=== PATIENT | female | born 1935 | race Caucasian/White ===

== ENCOUNTER 2020-11-03 20:44 | Emergency (ER) | payer OTHER ==
--- OUTSIDE RECORDS SUMMARY | 2020-11-03 20:46 | XMS REPORT | Continuity of Care Document ---
:[birth year][address] [facility] t Address [address] [place] [address] Care Team Providers Name Role Phone ISREAL HERNANDEZ Attending Clinician Unavailable ISREAL HERNANDEZ Admitting Clinician Unavailable Problems Condition Condition Condition Status Onset Resolution Last Treating Co mments Source Name Details Category Date Date Treatment Clinician Date Urge Urge Disease Active 2017-[address] [facility] incontinen incontinen -19 [facility] - ce ce 00:00: Medical 00 Center Allergies, Adverse Reactions, Alerts Allergy Allergy Status Severity Reaction(s) Onset Inactive Treating Comm ents Source Name Type Date Date Clinician Penicill Propensi Active Rash 2017-[address] [facility] [address] [facility] - adverse [facility]: [facility] reaction 00 Center s Adhesive Propensi Active Rash 2017-[address] [facility] Tape ty to 2-18 [facility] - adverse 00:00: Medical reaction 00 [place] [facility] [facility] Aspirin, Propensi Active Nausea Only 2017-[address] Buffered ty to 2-18 [facility] - adverse 00:00: Medical reaction 00 Center s Social History Social Habit Start Date Stop Date Quantity Comments Source History [facility] - Alcohol Std Drinks Medica l Center History [facility] - Alcohol Binge Medical [place] Sex Assigned At [facility] - [facility] Center Tobacco use and 2018-07-20 2018-07-[address] [facility] [address] [facility] - exposure 00:00:00 00:00:00 Medical Center Alcohol intake 2018-07-20 2018-07-20 Current [facility]3]k es - 00:00:00 00:00:00 non-drinker of Medical Ce nter alcohol (finding) History SDOH 2018-07-18 2018-07-[address] [facility] - Alcohol Frequency 00:00:00 00:00:00 Medical Center Smoking Status Start Date Stop Date Source Never smoker [facility] - M edical [facility] Medications Ordered Filled Start Stop Current Ordering Indication Dosage Frequency Signature Comments Components Source Medication Medication Date Date Medication? Clinician (SIG) Name Name cholecalcif 2017-08 Yes Take by [facility], 2-19 [facility]. [facility] - vitamin D3, 16:12: Medica l (VITAMIN D3 39 Center ORAL) omega-3 2017-08 Yes 2g Q.5D Take [address] [facility] fatty 2-19 by mouth 2 [facility] - acids-fish 16:12: (two) Medica l oil 39 times Center 340-1,000 daily. mg Cap per capsule aspirin 81 2017-08 Yes 81mg QD Take [address] MG EC 2-19 by mouth [facility] - tablet 16:12: daily. Medical 39 Center Procedures This patient has no known procedures. Plan of Care Planned Activity Planned Date Details Comments Source Future Scheduled 2020-04-01 INFLUENZA VACCINE (#1) [facility] - Test 00:00:00 [code = INFLUENZA Medical Ce nter VACCINE (#1)] Future Scheduled 2018-08-[address] [facility] - Test 00:00:00 WELLNESS (YEAR 2 or Medical Center FIRST YEAR if no IPPE) [code = MEDICARE ANNUAL WELLNESS (YEAR 2 or FIRST YEAR if no IPPE)] Future Scheduled 2002 PNEUMOCOCCAL 65+ YRS [facility] - Test 00:00:00 (1 of 1 - Medical Center [id number] PCV13) [code = PNEUMOCOCCAL 65+ YRS (1 of 1 - [id number] PCV13)] Results Test Description Test Time Test Comments Results Result Sour e Comments FL, 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 NO INCREMENTS needed INTERPRETATION REQUESTED. OSE 2018-07-19 12:43:00 Test Item Value Reference Range Interpretation Comme nts GLUCOSE RANDOM (BEAKER) (test code = 652) 105 mg/dL 70-110 BUN AND [id number] 12:43:00 Test Item Value Reference Range Interpretation Comments BLOOD UREA NITROGEN 10 mg/dL 10-26 (JOSE DAVID) (test code = 354) CREATININE (PRIYAAKER) 0.66 mg/dL 0.50-1.20 (test code = 358) EGFR (JOSE DAVID) (test 86 mL/min/1.73 ESTIMA MANISH GFR IS code = 1092) sq m NOT ACCURATE CREATININE CLEARANCE IN PREDICTING GLOMERULAR FILTRATION RATE . ESTIMATED GFR I S NOT APPLICABLE FOR DIALYSIS MINGAG TS. [id number] 12:26:00 Test Item Value Reference Range Interpretation Comments HEMOGLOBIN (JOSE DAVID) (test code = 13.7 GM/DL 12.0-15.5 410)
--- NOTE | 2020-11-04 01:05 | EDPHYS ---
Physician Documentation [facility] Name: Barbara Garibay Age: 85 yrs Sex: Female : 1935 Arrival Date: 11/03/2020 Time: 20:46 Bed 25 Private MD: ED Physician Mateo Regalado HPI: 11/04 00:48 This 85 yrs old Female presents to ER via EMS with complaints of Back Pain. pkl 00:48 Details of fall: The patient fell from an upright position, while standing. Onset: The pkl symptoms/episode began/occurred today. Associated injuries: The patient sustained neck injury, upper back injury, injury to the low back. Historical: - Allergies: 11/03 21:10 Aspirin; 21:10 PENICILLINS; fu - PMHx: 21:10 High Cholesterol; fu 21:37 stroke- left side weakness; Hypertension; fu - PSHx: 21:10 Hysterectomy; eye surgery; fu - Immunization history:: Adult Immunizations not up to date. - Social history:: Patient/guardian denies using tobacco products, Smoking status: Patient denies any tobacco usage or history of. ROS: 11/04 00:48 Eyes: Negative for injury, pain, redness, and discharge, ENT: Negative for injury, pkl pain, and discharge. Neck: Positive for pain with movement. Cardiovascular: Negative for chest pain. Respiratory: Negative for cough, shortness of breath. Abdomen/GI: Negative for abdominal pain, nausea, vomiting, and diarrhea. Back: Positive for pain with movement, of the lower back. : Negative for urinary symptoms. MS/extremity: Negative for acute changes. Skin: Negative for rash. Neuro: Negative for altered mental status, loss of consciousness. Exam: 00:48 Head/Face: Normocephalic, atraumatic. Eyes: Pupils equal round and reactive to light, pkl extra-ocular motions intact. Lids and lashes normal. Conjunctiva and sclera are non-icteric and not injected. Cornea within normal limits. Periorbital areas with no swelling, redness, or edema. ENT: Nares patent. No nasal discharge, no septal abnormalities noted. Tympanic membranes are normal and external auditory canals are clear. Oropharynx with no redness, swelling, or masses, exudates, or evidence of obstruction, uvula midline. Mucous membranes moist. 00:48 Neck: ROM/movement: pain, that is mild, with any movement. 00:48 Chest/axilla: Exam negative for acute changes. 00:48 Cardiovascular: Exam negative for acute changes. 00:48 Respiratory: the patient does not display signs of respiratory distress, Respirations: normal, Breath sounds: are clear throughout. 00:48 Abdomen/GI: Bowel sounds: normal, Palpation: abdomen is soft and non-tender, in all quadrants. 00:48 Back: pain, that is moderate, of the lower back. 00:48 : Exam negative for acute changes. 00:48 Musculoskeletal/extremity: Extremities: grossly normal except: noted in the left knee: 00:48 Skin: Exam negative for rash. 00:48 Neuro: Orientation: appropriate for stated age, Mentation: is normal, Cranial nerves: grossly normal, Motor: is normal. Vital Signs: 11/03 20:49 BP 172 / 79; Pulse 82; Resp 18; Temp 99.5(O); Pulse Ox 97% on R/A; Pain 0/10; fu 21:00 BP 172 / 79; Pulse 75; Resp 18; Temp 98.4(O); Pulse Ox 97% on R/A; Pain 0/10; fu 23:47 BP 152 / 97; Pulse 70; Resp 19; Pulse Ox 97% on R/A; fu MDM: 22:38 Patient medically screened. [facility] 11/04 01:01 Data reviewed: vital signs, nurses notes, radiologic studies, CT scan. ED course: pkl Discussed CT Scans with patient and family. Advised to follow up with pain management in a few days. Instructions understood. 11/03 22:49 Order name: CT Traumagram (Head C Spine CAP wo con) [facility] Administered Medications: 01:13 Drug: Tylenol 650 mg Route: PO; fu Disposition: 11/04/20 01:05 Discharged to Home. Impression: Cervical strain. Contusion back. S/P Fall. - Condition is Stable. - Medication Reconciliation Form, Thank You Letter, Antibiotic Education, Prescription Opioid Use form. - Follow up: Private Physician; When: 2 - 3 days; Reason: Re-evaluation by your physician. - Problem is new. - Symptoms are unchanged. Signatures: Dispatcher [employer] EDMS Mateo Regalado MD MD pkChristian Brooks RN RN fu Corrections: (The following items were deleted from the chart) 01:44 01:05 11/04/2020 01:05 Discharged to Home. Impression: Cervical strain. Contusion back. fu S/P Fall. Condition is Stable. Forms are Medication Reconciliation Form, Thank You Letter, Antibiotic Education, Prescription Opioid Use. Follow up: Private Physician; When: 2 - 3 days; Reason: Re-evaluation by your physician. Problem is new. Symptoms are unchanged. pkl
--- NOTE | 2020-11-04 01:05 | ER ---
Nurse's Notes [facility] Name: Barbara Garibay Age: 85 yrs Sex: Female : 1935 Arrival Date: 11/03/2020 Time: 20:46 Bed 25 Private MD: Diagnosis: Cervical strain. Contusion back. S/P Fall Presentation: 11/03 20:49 Chief complaint: EMS states: Patient fell this morning at home in a ceramic floor, fu toned EMS due to severe back pain with movement. Fentanyl 25mcg given IV before moving patient out of the house. Coronavirus screen: Client denies travel out of the [place] in the last 14 days. Ebola Screen: No symptoms or risks identified at this time. Initial Sepsis Screen: Does the patient meet any 2 criteria? No. Patient's initial sepsis screen is negative. Does the patient have a suspected source of infection? No. Patient's initial sepsis screen is negative. Risk Assessment: Do you want to hurt yourself or someone else? Patient reports no desire to harm self or others. Onset of symptoms was November 04, 2019. 20:49 Method Of Arrival: EMS: [facility] fu 20:49 Acuity: OMKAR 3 fu Historical: - Allergies: 21:10 Aspirin; fu 21:10 PENICILLINS; fu - PMHx: 21:10 High Cholesterol; fu 21:37 stroke- left side weakness; Hypertension; fu - PSHx: 21:10 Hysterectomy; eye surgery; fu - Immunization history:: Adult Immunizations not up to date. - Social history:: Patient/guardian denies using tobacco products, Smoking status: Patient denies any tobacco usage or history of. Screenin:15 Abuse screen: Denies threats or abuse. Nutritional screening: No deficits noted. fu Tuberculosis screening: No symptoms or risk factors identified. Fall Risk Fall in past 12 months (25 points). Mental Status- Oriented to own ability (0 pts). Assessment: 21:11 General: Appears uncomfortable, Behavior is calm, cooperative, appropriate for age, fu Denies fever, feeling ill, fatigue, chills. Pain: Complains of pain in lower back Pain does not radiate. Pain currently is 5 out of 10 on a pain scale. Quality of pain is described as sharp, Pain began this morning Aggravated by repositioning, movement. Neuro: Level of Consciousness is awake, alert, obeys commands, Oriented to person, place, time, situation, Automatic Glove Former are equal bilaterally Moves all extremities. Speech is normal, Facial symmetry appears normal, Reports headache in left parietal area. Cardiovascular: Denies chest pain, nausea, vomiting. Respiratory: Respiratory effort is even, unlabored, Respiratory pattern is regular. GI: No signs and/or symptoms were reported involving the gastrointestinal system. : No signs and/or symptoms were reported regarding the genitourinary system. Derm: Reports redness on the left side. 22:25 Reassessment: Patient is alert, oriented x 3, equal unlabored respirations, skin fu warm/dry/pink. bedpan provided. 22:25 Reassessment: bruising noted to lower back. fu 23:49 Reassessment: Patient and/or family updated on plan of care and expected duration. Pain fu level reassessed. family at bedside. 11/04 01:30 Reassessment: patient for discharge. CD of CT given to patient's daughter in law. fu Vital Signs: 05 20:49 BP 172 / 79; Pulse 82; Resp 18; Temp 99.5(O); Pulse Ox 97% on R/A; Pain 0/10; fu 21:00 BP 172 / 79; Pulse 75; Resp 18; Temp 98.4(O); Pulse Ox 97% on R/A; Pain 0/10; fu 23:47 BP 152 / 97; Pulse 70; Resp 19; Pulse Ox 97% on R/A; fu ED Course: 20:46 Patient arrived in ED. es 20:59 Christian Sheppard, RN is Primary Nurse. fu 21:05 Triage completed. fu 21:16 Patient has correct armband on for positive identification. Bed in low position. Call fu light in reach. Side rails up X2. Pulse ox on. NIBP on. 22:38 Mateo Regalado MD is Attending Physician. pkl 23:19 CT Traumagram (Head C Spine CAP wo con) In Process Unspecified. EDMS 04 01:44 No provider procedures requiring assistance completed. fu 01:44 Patient did not have IV access during this emergency room visit. fu Administered Medications: 01:13 Drug: Tylenol 650 mg Route: PO; fu Outcome: 01:05 Discharge ordered by . pkl 01:45 Discharged to home via wheelchair, with family. fu 01:45 Condition: good 01:45 Discharge instructions given to patient, family, Instructed on discharge instructions, follow up and referral plans. Demonstrated understanding of instructions, follow-up care. 01:47 Patient left the ED. fu Signatures: Dispatcher [employer] Mateo Fernandez MD MD pkSada Koenig Felix, RN RN fu Corrections: (The following items were deleted from the chart) 02:03 01:44 Patient left the ED. fu fu
[2020-11-04] MEDS ORDERED: ACETAMINOPHEN 325 MG TABLET ONE (01:25)
[2020-11-04 03:50] VITALS: O2SAT 97
[2020-11-04 03:51] VITALS: TEMP 98.4
[2020-11-04 03:53] VITALS: BP 152/97
--- NOTE | 2020-11-04 12:49 | RAD REPORT ---
EXAM DESCRIPTION: CT - Head C Spine Cap Vikki Con - 11/04/2020 6:36 am CLINICAL HISTORY: Fall on ceramic floor. Severe back pain. TECHNIQUE: Axial, coronal, and sagittal images through the brain were performed in the absence of in travenous contrast. CT of the cervical spine was performed without contrast. Axial, coronal, and sagittal reconstructions were created and sent to PACS. CT of the chest, abdomen, and pelvis was performed without contrast. Axial, coronal, and sagittal rec onstructions were created and sent to PACS. These exams were performed according to our departmental dose-optimization program which includes use of Automated Exposure Control, adjustment of the mA and/or kV according to patient size and/or use o f iterative reconstruction technique. COMPARISON: None. FINDINGS: CT Head: There is diffuse age-appropriate atrophy seen throughout the brain parenchyma. Moderate periventricul ar white matter changes are seen to be present and there is prominent ex vacuo dilatation of the vent ricular system. There is no intra-axial or extra-axial bleed. There is no mass or mass effect. The visualized paranasal sinuses and mastoid air cells are patent. No fracture is identified. CT cervical spine: No acute osseous abnormality identified. Vertebral body height and alignment are maintained. No atlan todental interval widening. Atlantoaxial alignment is maintained. C2-C3: Mild left-sided neuroforaminal narrowing due to uncinate and facet hypertrophy. No significant central canal or right-sided neuroforaminal narrowing. C3-C4: Prominent disc height loss. Posterior disc osteophyte complex. Minimal left neuroforaminal maury rowing due to uncinate and facet hypertrophy. No significant central canal or right-sided neuroforami nal narrowing. C4-C5: Mild disc height loss. Posterior disc osteophyte complex. Mild to moderate bilateral neurofora nino narrowing due to uncinate hypertrophy. No significant central canal narrowing. C5-C6: Prominent disc height loss. Posterior disc osteophyte complex results in borderline central ca nal narrowing to 0.9 cm AP. Mild bilateral neuroforaminal narrowing due to uncinate hypertrophy. C6-C7: Mild disc height loss. Posterior disc osteophyte complex results in borderline central canal n arrowing to 0.8 cm AP. Mild bilateral neuroforaminal stenosis due to uncinate hypertrophy. Paraspinal soft tissues: Bilateral carotid bulb calcifications. CT chest, abdomen, and pelvis: Mild motion degradation in the upper abdomen. Lungs and pleura: Mild biapical pleural parenchymal fibrosis. No pulmonary consolidation. No pleural effusion. No pneumothorax. Mediastinum and neck: No mediastinal lymphadenopathy identified by CT size criteria. Unremarkable sahil earance of the thyroid gland. Cardiac: No cardiomegaly or pericardial effusion. No thoracic aortic aneurysm. Mild to moderate aorti c and coronary artery atherosclerosis. Hepatobiliary: No obvious hepatic lesion identified. The hepatic and portal veins are patent. The gal lbladder is surgically absent. No biliary ductal dilatation. Pancreas: Unremarkable. Spleen: Unremarkable. Gastrointestinal: No evidence of bowel obstruction or perienteric inflammation. The appendix is not c learly visualized, but there are no pericecal inflammatory changes. Mild left colonic diverticulosis. Small amount of fecal material throughout the colon. Adrenals: No abnormality identified in either adrenal gland. Renal: No obvious parenchymal abnormality in either kidney. No hydronephrosis or urolithiasis. Bladder/Reproductive: Unremarkable appearance of the urinary bladder by CT technique. Prior hysterect desire. Vascular/Lymphatics: No lymphadenopathy identified by CT size criteria. Abdominal aorta is normal in caliber. Moderate calcific atherosclerosis. Musculoskeletal: Osteopenia. Minimal central wedge compression deformity at L1, likely chronic. Mild to moderate spinal degenerative changes, most prominent at L5-S1, and in the lower lumbar spine facet s. Sacrococcygeal alignment is maintained. No acute osseous abnormality identified. No concerning oss eous lesion identified. Fluid / peritoneum: No significant free fluid. No free intraperitoneal air identified. IMPRESSION: 1. No acute intracranial abnormality identified. 2. No acute osseous abnormality identified. 3. No acute traumatic abnormality identified in the chest, abdomen, or pelvis. 4. Cervical spine degenerative changes, with multilevel mild neuroforaminal and borderline central canal narrowing. 5. Moderate atherosclerosis. Electronically signed by: Maude Eller MD 11/03/2020 11:34 PM CDT Due to temporary technical issues with the PACS/Fluency reporting system, reports are being signed by the in house radiologist without review as a courtesy to ensure prompt reporting. The interpreting r adiologist is fully responsible for the content of the report.
== END 2020-11-04 01:44 | disposition home or self-care (01) ==
LOC: EDBD 20:44 → ER 20:44
DX: S16.1XXA Strain of muscle, fascia and tendon at neck level, initial encounter (principal); S30.0XXA Contusion of lower back and pelvis, initial encounter; W18.30XA Fall on same level, unspecified, initial encounter; Y93.89 Activity, other specified; Y92.9 Unspecified place or not applicable; Z88.0 Allergy status to penicillin; Z88.6 Allergy status to analgesic agent; I10 Essential (primary) hypertension
CPT/HCPCS: 70450; 71250; 72125; 99284